=== PATIENT | male | born 2000 | race Caucasian/White ===

== ENCOUNTER 2022-04-04 12:21 | Emergency (ER) | payer OTHER ==
[~2022-04-04] VITALS: Ht 182.9 cm; Wt 104.5 kg
[2022-04-04 12:21] VITALS: BP 139/62
[2022-04-04] MEDS ORDERED: IBUP-1114 PO (12:28)
[2022-04-04] MEDS ORDERED: CYCL-707 PO (14:50)
[2022-04-04] MEDS ORDERED: NAPR-837 PO (14:50)
== END 2022-04-04 15:04 | disposition home or self-care (01) ==
LOC: M ED 12:21
DX: S39.012A Strain of muscle, fascia and tendon of lower back, initial encounter (principal); S13.4XXA Sprain of ligaments of cervical spine, initial encounter; S43.402A Unspecified sprain of left shoulder joint, initial encounter; V48.0XXA Car driver injured in noncollision transport accident in nontraffic accident, initial encounter

== ENCOUNTER 2022-05-24 07:20 | Emergency (ER) | payer SELFPAY, OTHER ==
[~2022-05-24] VITALS: Ht 177.8 cm; Wt 110.8 kg
[~2022-05-24 07:20] MED LIST: CYCL-707 PO; IBUP-1114 PO; NAPR-837 PO
[2022-05-24 07:21] VITALS: BP 138/65
== END 2022-05-24 09:09 | disposition left against medical advice (07) ==
LOC: M ED 07:20
DX: Z04.3 Encounter for examination and observation following other accident (principal); Z53.20 Procedure and treatment not carried out because of patient's decision for unspecified reasons; V48.0XXD Car driver injured in noncollision transport accident in nontraffic accident, subsequent encounter; F17.200 Nicotine dependence, unspecified, uncomplicated